=== PATIENT | male | born 1985 | race Caucasian/White ===

== ENCOUNTER → 2024-12-16 | Outpatient (CLI) | payer MEDICAID, SELFPAY ==
--- NOTE | 2024-12-16 14:23 | XR_ITS ---
Examination: Shoulder,right, 3 views Technique: Shoulder AP internal rotation, AP external rotation, Y view shoulder, 3 views Exam date and time :December 16, 2024 1430 hours INDICATIONS: Patient fell 2 weeks ago with injury to the shoulder, shoulder pain. FINDINGS: Partial healing fracture humeral neck with adequate alignment, mild impaction Fracture appears to above the greater tuberosity humeral head IMPRESSION: Early healing fractures humeral head and neck
== END | disposition home or self-care (01) ==
PROVIDERS: Referring Provider Orthopaedic Surgery; Visit Provider Orthopaedic Surgery
DX: S42.211A Unspecified displaced fracture of surgical neck of right humerus, initial encounter for closed fracture (principal); S42.391A Other fracture of shaft of right humerus, initial encounter for closed fracture; W19.XXXA Unspecified fall, initial encounter
CPT/HCPCS: 73030